=== PATIENT | male | born 2000 | race Hispanic/Latino ===

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

== ENCOUNTER 2018-11-13 11:15 | Emergency (ER) | payer SELFPAY ==
[2018-11-13] MEDS ORDERED: Lidocaine 1% (PF) 30 ML VIAL ONE (11:38)
[2018-11-13] MEDS ORDERED: Adacel (T-DAP) 0.5 ML SYRINGE ONE (11:38)
[2018-11-13] MEDS ORDERED: Bacitracin Zinc 1 Packet ONE (12:13)
== END 2018-11-13 12:20 | disposition home or self-care (01) ==
LOC: ERS 11:15
DX: S61.512A Laceration without foreign body of left wrist, initial encounter (principal); S61.411A Laceration without foreign body of right hand, initial encounter; F17.210 Nicotine dependence, cigarettes, uncomplicated; W22.8XXA Striking against or struck by other objects, initial encounter
CPT/HCPCS: 12002; 90471; 90715; J2001

== ENCOUNTER 2019-12-25 10:56 | Emergency (ER) | payer OTHER, SELFPAY ==
[2019-12-26 15:23] LABS: SARS-CoV-2 MS2 Positive; SARS-CoV-2 N Gene Negative; SARS-CoV-2 S Gene Negative; SARS-CoV-2 orf1ab Negative
== END 2019-12-25 11:54 | disposition home or self-care (01) ==
LOC: ERS 10:56
DX: Z20.828 Contact with and (suspected) exposure to other viral communicable diseases (principal); F17.210 Nicotine dependence, cigarettes, uncomplicated
CPT/HCPCS: 87635; 99283; U0003